=== PATIENT | male | born 1955 | race Caucasian/White ===

== ENCOUNTER 2016-08-13 11:39 | Day surgery (SDC) | payer OTHER ==
[2016-08-13] VITALS (10 sets, daily range): BP systolic 118–140; BP diastolic 7–91; PULSE 50–57; RESP 8–16; O2SAT 93–99
[~2016-08-13] VITALS: Ht 175.3 cm; Wt 87.5 kg
--- NOTE | 2016-08-13 06:57 | PCM.HPANE ---
Patient Data Surgeon Admitting Provider: Attending Provider:Rodney Nice MD Primary Care Physician:Jc Rueda MD Other Provider:Linda Braningham Anesthesia Reason for Visit Right Inguinal Hernia Ht/WT & BMI Height (Feet): 5 Height (Inches): 9 Weight (Kilograms): 89.358 Body Mass Index 29.00 Allergies Coded Allergies: No Known Allergies (Verified Allergy, Unknown, 08/13/16) Past Anesthesia History Anesthesia History: Denies:: Abnormal Airway, Anesthesia Reactions, Difficult Intubation, Fam Anesthesia Reaction, Fam Malignant Hypertherm, Malignant Hyperthermia Diabetes History Hx Diabetes?: No MRSA MRSA: No Medications Blood Thinner: Aspirin Home Meds Incl Beta Héctor: Yes (CARVEDILOL) Reported Medications Aspirin 81 Mg [id number] Mg PO DAILY Ref 0 05/27/15 Carvedilol 12.5 Mg Qzffon26.5 Mg PO BID Ref 0 05/27/15 History History of ENT Problems?: No HEENT History: Denies:: Abnormal Airway Difficult Intubation Hearing Problem Hx of Heart Problems?: Yes Cardiovascular History: Positive for:: Chest Pain (DEEMED TO BE MUSCULOSKELETAL 2005) Hypertension (HYPERLIIDEMIA) Irregular Heartbeat (HX OF [place] ZIO PATCH 05/2012) Denies:: Heart Murmur Valvular Heart Disease Hx of Respiratory Problem?: No Respiratory History: Denies:: Use of C-PAP Machine Hx Neurologic Problems?: No Neurological History: Denies:: CVA Dementia Hx of GI Problems?: Yes Gastrointestinal History: Positive for:: Rectal Bleeding (HX OF COLON POLYPS, RECTAL FISSURE S/P HEMORRHOIDECTOMY) Other GI Pertinent History: S/P LT INGUINAL HERNIA RPR RT INGUINAL HERNIA=CURRENT PROBLEM Hx of Problems?: No Male Hx: Denies:: Prostate Problems Scrotal Mass Testicular Surgery Skin History: Denies:: History Skin Disorders? Pressure Ulcers Hx Musculoskeletal Problems?: No Musculoskeletal History: Denies:: Joint Replacement Hx of Psycho/Social Problems?: No Psycho Social History: Denies:: Anxiety Hx Depression Hx Surgeries?: Yes (HEMORRHOIDECTOMY,LT INGUINAL HERNIA RPR) Hx Any Other Health Problems?: Yes Other History: Denies:: Cancer Endocrine Disease Hospitalization Thyroid Disease History Blood Transfusions: Denies:: Blood Transfusions Hx Diabetes: No Hx Alcohol Use: Yes (HX OF HEAVY USAGE - LESS NOW)Hx Substance Use: No Smoking Status: Former Smoker Have You Smoked inLast 12 mo: No Stop/Bang S-Snoring: Do You Snore Loudly: No T-Tired: feel tired, fatigued: No O-Obsered: Observed not breath: No P-Blood Pressure: treated: Yes B- Body Mass Index > 35 kg/m2: No A- Age over 50: Yes N- Neck Large Circumference: No G- Gender Male: Yes UYEN Total Score: 3 Risk Assessment Category Category 1A: Patient has history of documented sleep apnea, and HAS NOT received any narcotic, sedative or anesthesia administration during this stay. Category 1B: Patient has history of documented sleep apnea, and HAS received any narcotic , sedative or anesthesia administration during this stay Category 2: Patient has SUSPECTED Obstructive Sleep Apnea, and HAS received any narcotic , sedative or anesthesia administration during this stay. Category 3: Patient has SUSPECTED Obstructive Sleep Apnea and HAS NOT received narcotic, sedative or anesthesia administration during this stay. Category 4: Outpatient in Procedural Areas with known sleep apnea or who screen positive for High Risk via the STOP/BANG questionnaire. Exam Exam General Appearance: Alert, Oriented X3, Cooperative HEENT/AIRWAY: MP 2, Neck Movement (from), Mouth Opening (wnl) Lungs: Clear to Auscultation Heart: Exam Unremarkable Plan Impression Patient chart reviewed, patient interviewed and anesthestic plan with risks, benefits, and alternatives discussed, and informed consent obtained. NPO Status: 05/30/15 AT 1999 ASA Physical Status: ASA2 Mod Systemic Disease Anesthetic Plan: GA Bene/Risks/Altern/Consents: Yes HP Complete Prior to Induction: Yes Marino Wright MD Aug 13, 2016 06:57
[~2016-08-13 11:39] MED LIST: ASPI-973 PO; CARV12.52 PO; CeFAZolin 2 Gm/50 mL D5W IV Premix IV ONE; Lactated Ringer's 1,000 ML IV ONE
[2016-08-13] MEDS ORDERED: Ondansetron 2 mg/mL 2 mL Inj ONE (11:40)
[2016-08-13] MEDS ORDERED: fentaNYL-PF 50 mCg/mL 2 mL Inj ONE ×2 (11:40)
[2016-08-13] MEDS ORDERED: Dexamethasone 4 mg/mL Inj ONE (11:40)
[2016-08-13] MEDS ORDERED: Propofol 10,000 mCg/mL 20 mL Inj ONE (11:40)
[2016-08-13] MEDS ORDERED: CeFAZolin 2 Gm/50 mL D5W Duplex Bag IV ONE (12:10)
[2016-08-13] MEDS ORDERED: Bupivacaine Liposome 1.3% 20 mL Inj ONE (14:02)
[2016-08-13] MEDS ORDERED: Bupivacaine-MPF 0.5% 30 mL Inj INFILTRATE ONE (14:11)
[2016-08-13] MEDS ORDERED: Phenylephrine 10,000 mCg/mL Inj IVPUSH PRN (14:20)
[2016-08-13] MEDS ORDERED: Lactated Ringer's 500 ML IV PRN (14:20)
[2016-08-13] MEDS ORDERED: Lactated Ringer's 1,000 ML IV SCH (14:20)
[2016-08-13] MEDS ORDERED: EPHEDrine Sulfate 50 mg/mL Inj IVPUSH PRN (14:20)
[2016-08-13] MEDS ORDERED: fentaNYL-PF 50 mCg/mL 2 mL Inj IVPUSH PRN (14:20)
[2016-08-13] MEDS ORDERED: Dexamethasone 4 mg/mL Inj IVPUSH PRN (14:20)
[2016-08-13] MEDS ORDERED: EPHEDrine Sulfate 50 mg/mL Inj IM PRN (14:20)
[2016-08-13] MEDS ORDERED: Labetalol 5 mg/mL 4 mL Inj IV PRN (14:20)
[2016-08-13] MEDS ORDERED: Ondansetron 2 mg/mL 2 mL Inj IVPUSH PRN (14:20)
[2016-08-13] MEDS ORDERED: hydrALAZINE 20 mg/mL Inj IVPUSH PRN (14:20)
[2016-08-13] MEDS ORDERED: Atropine 0.4 mg/mL Inj IVPUSH PRN (14:20)
[2016-08-13] MEDS ORDERED: hydrOXYzine Inj 25 MG/1 mL SDV IM PRN (14:20)
[2016-08-13] MEDS ORDERED: HYDROmorphone 1 mg/mL Inj IVPUSH PRN (14:20)
[2016-08-13] MEDS ORDERED: HYDROcodone-APAP 5-325 mg Tablet PO PRN (15:00)
--- NOTE | 2016-08-13 16:42 | PCM.ANEP1 ---
Post Anesthesia Phase 1 PACU Phase 1 Assessment Vital Signs Vital Signs Date Time Temp Pulse Resp B/P Pulse Ox O2 Delivery O2 Flow Rate FiO2 08/13/16 15:44 57 16 137/91 94 Room Air 08/13/16 15:38 36 55 16 132/79 96 Room Air 08/13/16 15:30 54 11 133/85 99 Room Air 08/13/16 15:25 54 10 135/84 98 Room Air 08/13/16 15:20 36.1 52 9 132/87 98 Room Air 08/13/16 15:15 50 11 136/78 98 Simple Mask 8 08/13/16 15:10 50 10 140/84 97 Simple Mask 8 08/13/16 15:05 52 8 125/82 97 Simple Mask 8 08/13/16 15:00 36.4 50 8 118/7 97 Simple Mask 8 08/13/16 12:07 36.2 51 16 130/90 99 Room Air Anesthetic Administered: GA Level of Alertness: Awake, talking VALENTIN's with Equal Strength: Yes Pain: No Nausea or Vomiting: No Oxygen Delivery: Room Air Lungs: Normal Air Movement Marino Wright MD Aug 13, 2016 16:42
--- NOTE | 2016-08-13 16:43 | PCM.ANEP2 ---
Post Anesthesia Evaluation ASA/CMS Post Anesthesia VS in Patient's Normal Range?: Yes Resp Stable; Airway Patent?: Yes CV Function & Hydration Stable: Yes Mental Status Recovered?: Yes Pain control Satisfactory?: Yes N/V Control Satisfactory?: Yes Marino Wright MD Aug 13, 2016 16:43
--- NOTE | 2016-08-13 23:24 | OP ---
[address] [address] OPERATIVE REPORT PATIENT: PADMINI TEMPLE : 1955 MR#: [id number] ADMIT: 08/13/2016 JOB ID: [id number] DATE OF SURGERY: 08/13/2016 PREOPERATIVE DIAGNOSIS(ES): Symptomatic right inguinal hernia. POSTOPERATIVE DIAGNOSIS(ES): 1. Large right cord lipoma. 2. Small indirect right inguinal hernia. OPERATION: 1. Excise large right cord lipoma. 2. Repair of indirect right inguinal hernia with Kugel patch. SURGEON: Rodney Nice MD. SET KEY DRIVER: Purvi Gimenez PA-C. INDICATIONS: The patient is a 61-year-old male who 15 months ago I repaired a left indirect and direct inguinal hernia, but also found a large cord lipoma with a Kugel patch. He has now developed a new right inguinal hernia, and after discussing options with the patient, it was elected to proceed with repair. He is a lifelong nonsmoker. He is physically fit. Does not have chronic constipation or urinary straining. FINDINGS: He had a small indirect right inguinal hernia and a large cord lipoma. PROCEDURE: At the beginning and end of the operation, the SCOAP checklist was completed. An LMA anesthetic was induced by Dr. Aris Wright. Using ChloraPrep, he was prepped and draped in the usual fashion. A right inguinal incision was designed and infiltrated with 0.5% plain bupivacaine. After making the incision, dissection through the subcutaneous tissue was done with cautery. A large superficial epigastric vein was ligated with 3-0 chromic and divided. The external oblique was identified and additional local anesthesia was injected deep to that. It was opened in the direction of its fibers. I then identified the right ilioinguinal nerve and where it came out of the internal oblique I sharply divided it. The internal oblique and transversus abdominis were opened in the direction of their fibers. The transversalis fascia was opened vertically. The cord structures were identified. The vas deferens clearly identified, as were the gonadal vessels. An indirect sac was swept down off of those structures. As stated above, there was a large cord lipoma which was mobilized off of the cord and then ligated with a mattress suture of 3-0 chromic. It was divided with cautery. It was not submitted to Pathology. The deep epigastric artery and vein were identified and reflected anteriorly, and the preperitoneal space was then developed. A small Kugel patch was then placed within the preperitoneal space and secured to the transversus abdominis with interrupted 2-0 PDS. The internal oblique was closed with 2-0 PDS, as was the transversus abdominis. I then injected liposomal bupivacaine into the abdominal wall muscles. The external oblique was then closed with 3-0 Vicryl. The Valerie's with interrupted 3-0 Vicryl and skin with subcuticular 4-0 Vicryl and Dermabond. Prior to closing the skin, additional liposomal bupivacaine was injected just in the subcutaneous space. Estimated blood loss was 10 cc. There were no apparent complications. The final sponge, needle and instrument counts were announced as correct and he was returned to recovery in stable condition. Critical assistance provided by MAX Valentin. JOSE
== END 2016-08-13 23:59 | disposition home or self-care (01) ==
LOC: SAS 11:39
PROVIDERS: ATTEND Surgery
DX: K40.90 Unilateral inguinal hernia, without obstruction or gangrene, not specified as recurrent (principal); I47.2 Ventricular tachycardia; Z87.891 Personal history of nicotine dependence
CPT/HCPCS: 49505; C1781; J0690; J1100; J2405; J7120